=== PATIENT | female | born 1980 | race Caucasian/White ===

== ENCOUNTER 2021-03-10 21:24 | Observation (INO) | payer BC, OTHER ==
[~2021-03-10] VITALS: Ht 165.1 cm; Wt 113.4 kg
[2021-03-10 22:07] LABS: HEMOGLOBIN 14.9 gm/dl (12.3-15.3); RED BLOOD COUNT 4.85 M/UL (4.00-5.10); WHITE BLOOD COUNT 18.2 K/UL (4.5-11.0)
[2021-03-10 22:29] LABS: BUN/CREATININE RATIO 10 (0-10)
[2021-03-11] MEDS ORDERED: MELATONIN10 M2 PO (01:53)
[2021-03-11] MEDS ORDERED: VITAMIN D 40400 UNIT PO (01:54)
[2021-03-11] MEDS ORDERED: VRAYLAR1.5 MG PO (01:54)
[2021-03-11] MEDS ORDERED: HYDROCODON-ACE1 EAC2 PO (12:43)
== END 2021-03-11 16:04 | disposition home or self-care (01) ==
LOC: ER1 21:24 → CDU 23:51 → M/S 23:51
PROVIDERS: Family Medicine; ADMIT Surgery
DX: K35.30 Acute appendicitis with localized peritonitis, without perforation or gangrene (principal); D72.829 Elevated white blood cell count, unspecified; F31.9 Bipolar disorder, unspecified; E66.01 Morbid (severe) obesity due to excess calories; Z68.41 Body mass index [BMI] 40.0-44.9, adult; Z79.899 Other long term (current) drug therapy; Z20.822 Contact with and (suspected) exposure to COVID-19
CPT/HCPCS: 80053; 81001; 83690; 84703; 85025; 96374; 96375; 96376; 99285; G0378; J1100; J2001; J2270; J2405; J2543; J2704; J2710; J3010; Q9967; U0002

== ENCOUNTER 2021-05-02 16:14 | Inpatient (IN) | payer BC, OTHER ==
[~2021-05-02] VITALS: Ht 165.1 cm; Wt 158.8 kg
[~2021-05-02 16:14] MED LIST: HYDROCODON-ACE1 EAC2 PO; MELATONIN10 M2 PO; VITAMIN D 40400 UNIT PO; VRAYLAR1.5 MG PO
[2021-05-02 17:36] LABS: HEMOGLOBIN 17.5 gm/dl (12.3-15.3); RED BLOOD COUNT 5.81 M/UL (4.00-5.10)
[2021-05-02 17:50] LABS: WHITE BLOOD COUNT 21.2 K/UL (4.5-11.0)
[2021-05-03 03:34] LABS: RED BLOOD COUNT 5.29 M/UL (4.00-5.10); WHITE BLOOD COUNT 25.4 K/UL (4.5-11.0)
[2021-05-03 04:20] LABS: HEMOGLOBIN 14.9 gm/dl (12.3-15.3)
--- NOTE | 2021-05-04 02:07 | NUR ---
05/03/211942 CALLED DR. MEEKS TO CONFIRM PLAN TO TRANSFER TO [facility] IN [facility]. SHE SAID THAT THE PATENT WAS ACCEPTED AND NEEDED TO GO BY FLIGHT BUT GROUND IF NEEDED. 05/03/212052 CALLED [facility] TO ARRANGE FLIGHT TRANSPORT, DECLINE DUE TO WEATHER 05/03/212108 CALLED [facility] TO ARRANGE FLIGHT TRANSPORT, DECLINE DUE TO WEATHER. 05/03/212014 CALLED DR. YSABEL HANSON- HE ONLY WANTED PT TO GO BY FLIGHT. PT IS TO UNSTABLE TO TRAVEL BY GROUND. 05/03/212022 CALLED RISHABH JACKMAN THE PATENTS TO GIVE UPDATE AND PLAN. HE AGREES AND GAVE CONSENT FOR TRASPORT WHEN ABLE TO FLY.
[2021-05-04 03:19] LABS: HEMOGLOBIN 14.5 gm/dl (12.3-15.3); RED BLOOD COUNT 4.89 M/UL (4.00-5.10); WHITE BLOOD COUNT 21.6 K/UL (4.5-11.0)
[2021-05-05 06:54] LABS: WHITE BLOOD COUNT 16.4 K/UL (4.5-11.0)
[2021-05-05 06:55] LABS: HEMOGLOBIN 11.2 gm/dl (12.3-15.3); RED BLOOD COUNT 3.8 M/UL (4.00-5.10)
[2021-05-05 07:03] LABS: ACINETOBACTER BAUMANNII Not Detected (Negative); CANDIDA ALBICANS Not Detected (Negative); CANDIDA KRUSEI Not Detected (Negative); CANDIDA TROPICALIS Not Detected (Negative); ENTEROCOCCUS Not Detected (Negative); ESCHERICHIA COLI Not Detected (Negative); HAEMOPHILUS INFLUENZAE Not Detected (Negative); KLEBSIELLA OXYTOCA Not Detected (Negative); KLEBSIELLA PNEUMONIAE Not Detected (Negative); KPC-CARBAPENEM-RESISTANCE GENE Not Detected (Negative); PROTEUS Not Detected (Negative); PSEUDOMONAS AERUGINOSA Not Detected (Negative); SERRATIA MARCESANS Not Detected (Negative); STAPHYLOCOCCUS AUREUS Not Detected (Negative); STREP AGALACTIAE (GROUP B) Not Detected (Negative); STREP PYOGENES (GROUP A) Not Detected (Negative); STREPTOCOCCUS Not Detected (Negative); vanA/B (VANCOMYCIN RESIST GENE Not Detected (Negative)
[2021-05-05 08:16] LABS: STAPHYLOCOCCUS DETECTED (Negative); mecA (METHICILLIN RESIST GENE DETECTED (Negative)
[2021-05-06 04:10] LABS: HEMOGLOBIN 11.4 gm/dl (12.3-15.3); RED BLOOD COUNT 3.92 M/UL (4.00-5.10)
[2021-05-06 04:13] LABS: WHITE BLOOD COUNT 21.8 K/UL (4.5-11.0)
[2021-05-06 12:14] LABS: ORGANISM ID Not indicated. (.); SPECIMEN SOURCE Urine (.); STREPTOCOCCUS PNEUMONIAE AG Negative (Negative)
[2021-05-08 05:29] LABS: HEMOGLOBIN 9.6 gm/dl (12.3-15.3); WHITE BLOOD COUNT 16.7 K/UL (4.5-11.0)
[2021-05-08 05:30] LABS: RED BLOOD COUNT 3.28 M/UL (4.00-5.10)
[2021-05-09 06:04] LABS: HEMOGLOBIN 9.1 gm/dl (12.3-15.3); RED BLOOD COUNT 3.13 M/UL (4.00-5.10); WHITE BLOOD COUNT 18.4 K/UL (4.5-11.0)
[2021-05-10 13:39] LABS: HEMOGLOBIN 9.5 gm/dl (12.3-15.3); RED BLOOD COUNT 3.32 M/UL (4.00-5.10)
[2021-05-11 09:34] LABS: HEMOGLOBIN 9.1 gm/dl (12.3-15.3); RED BLOOD COUNT 3.12 M/UL (4.00-5.10)
--- NOTE | 2021-05-11 10:43 | NUR ---
[address] CARTY ORDER 8 RNS AND 2 RESPIRATORY AT BEDSIDE PATIENT TOLERATED WELL.
[2021-05-12 07:30] LABS: HEMOGLOBIN 8.7 gm/dl (12.3-15.3); RED BLOOD COUNT 3.05 M/UL (4.00-5.10); WHITE BLOOD COUNT 16.6 K/UL (4.5-11.0)
[2021-05-13 06:04] LABS: HEMOGLOBIN 9.5 gm/dl (12.3-15.3); RED BLOOD COUNT 3.21 M/UL (4.00-5.10); WHITE BLOOD COUNT 18.3 K/UL (4.5-11.0)
[2021-05-14 05:44] LABS: HEMOGLOBIN 9.7 gm/dl (12.3-15.3); RED BLOOD COUNT 3.14 M/UL (4.00-5.10)
[2021-05-14 05:46] LABS: WHITE BLOOD COUNT 24.3 K/UL (4.5-11.0)
[2021-05-15 08:14] LABS: COMPLEMENT C3, SERUM 87 mg/dL (82-167); COMPLEMENT C4, SERUM 7 mg/dL (12-38)
== END 2021-05-15 18:30 | disposition expired | DRG 870 ==
LOC: ER1 16:14 → CDU 21:46 → 2 EAST 21:46
PROVIDERS: Emergency Medicine; Internal Medicine; Internal Medicine Nephrology; Internal Medicine Pulmonary Disease; ADMIT Internal Medicine
PROC: 02HV33Z Insertion of Infusion Device into Superior Vena Cava, Percutaneous Approach (ICD-10-PCS; principal; 2021-05-02)
PROC: 5A1955Z Respiratory Ventilation, Greater than 96 Consecutive Hours (ICD-10-PCS; 2021-05-02)
PROC: B548ZZA Ultrasonography of Superior Vena Cava, Guidance (ICD-10-PCS; 2021-05-02)
PROC: 0BH17EZ Insertion of Endotracheal Airway into Trachea, Via Natural or Artificial Opening (ICD-10-PCS; 2021-05-02)
PROC: 3E033XZ Introduction of Vasopressor into Peripheral Vein, Percutaneous Approach (ICD-10-PCS; 2021-05-02)
PROC: XW033E5 Introduction of Remdesivir Anti-infective into Peripheral Vein, Percutaneous Approach, New Technology Group 5 (ICD-10-PCS; 2021-05-02)
PROC: 8E0ZXY6 Isolation (ICD-10-PCS; 2021-05-02)
PROC: 3E0333Z Introduction of Anti-inflammatory into Peripheral Vein, Percutaneous Approach (ICD-10-PCS; 2021-05-02)
DX: A41.89 Other specified sepsis (principal); U07.1 COVID-19; J12.82 Pneumonia due to coronavirus disease 2019; J80 Acute respiratory distress syndrome; N17.0 Acute kidney failure with tubular necrosis; G93.41 Metabolic encephalopathy; J15.9 Unspecified bacterial pneumonia; R65.21 Severe sepsis with septic shock; I21.A1 Myocardial infarction type 2; E87.2 Acidosis; K92.2 Gastrointestinal hemorrhage, unspecified; I47.1 Supraventricular tachycardia; Z68.43 Body mass index [BMI] 50.0-59.9, adult; E87.3 Alkalosis; Z51.5 Encounter for palliative care; I12.9 Hypertensive chronic kidney disease with stage 1 through stage 4 chronic kidney disease, or unspecified chronic kidney disease; E87.6 Hypokalemia; E83.39 Other disorders of phosphorus metabolism; E83.42 Hypomagnesemia; E83.51 Hypocalcemia; E11.65 Type 2 diabetes mellitus with hyperglycemia; E66.01 Morbid (severe) obesity due to excess calories; Z79.01 Long term (current) use of anticoagulants; Z79.82 Long term (current) use of aspirin; Z79.899 Other long term (current) drug therapy
CPT/HCPCS: 31500; 36415; 36600; 43752; 70450; 71045; 71250; 80048; 80053; 80202; 81001; 82009; 82150; 82550; 82553; 82570; 82728; 82803; 82962; 83036; 83605; 83615; 83690; 83735; 83874; 83880; 84100; 84132; 84133; 84156; 84300; 84484; 84702; 85007; 85025; 85027; 85362; 85379; 85384; 85610; 85730; 86140; 86160; 86900; 86901; 87040; 87070; 87077; 87081; 87150; 87186; 87205; 87278; 87899; 89050; 93005; 94002; 94003; 94640; 94760; 96374; 99285; A6212; C1751; C9113; J0456; J0610; J0696; J1100; J1265; J1644; J1650; J1940; J2020; J2250; J2370; J2543; J2704; J2765; J3010; J3370; J3475; J3480; J7030; J7040; J7050; J7070; P9047; Q9967; U0002